=== PATIENT | male | born 1945 | race Caucasian/White ===

== ENCOUNTER 2019-06-30 10:37 | Outpatient (CLI) | payer MEDICARE, OTHER, SELFPAY ==
--- NOTE | 2019-06-30 10:44 | MR_ITS ---
WS: [id number] MRI HEAD WITH CONTRAST TECHNIQUE: Sagittal T1, T2 axial, T2 axial FLAIR, axial susceptibility weighted imaging, axial diffus ion weighted images, and coronal T2 images were obtained. Pre and post-T1 axial and post T1 coronal i mages. ADC and FSPGR images. CLINICAL INFORMATION: NEOPLASM OF UNCERTAIN BEHAVIOR CEREBRAL MENINGES COMPARISON: MRI 019 and FINDINGS: No evidence of restricted diffusion to suggest acute ischemia. Ventricular system and basal cisterns are patent. Moderate parenchymal volume loss. No suspicious intracranial signal abnormalities. Normal posterior fossa. Normal vascular flow voids skull base. No extra-axial fluid collections. Frontal pa renchymal volume loss. Mastoid air cells are well aerated. Paranasal sinuses are well aerated. No hem osiderin on susceptibly weighted images. 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 This daniel ures approximately 3 mm in maximum transverse dimension and is unchanged since the prior examinations . No underlying leptomeningeal enhancement or significant mass effect. No hydrocephalus. Visualized d ural venous sinuses appear patent. Normal optic chiasm and pituitary infundibulum. MR/MR head wo/w con [id number] IMPRESSION: 1. No evidence of restricted diffusion to suggest acute ischemia. 2. Stable pachymeningeal thickening and enhancement overlying the left cerebra l convexity unchanged since the prior examination. Differential considerations are broad and unchanged including lymphoma, metastatic disease, prior infectiou s or inflammatory etiologies, and neurosarcoid. No mass effect. 3. No suspicious intracranial signal abnormalities. 4. Moderate parenchymal volume loss more prominent in the frontal lobes. 5. No hydrocephalus.
== END 2019-06-30 10:38 | disposition home or self-care (01) ==
LOC: RADSHAW 10:42
PROVIDERS: Family Provider Physician Assistant Medical; Visit Provider Specialist
DX: D42.0 Neoplasm of uncertain behavior of cerebral meninges (principal)
CPT/HCPCS: 70553; A9579

== ENCOUNTER → 2021-08-09 09:23 | Outpatient (BNVA) | payer MEDICARE, OTHER, SELFPAY | PROVIDERS: Family Provider Physician Assistant Medical; PCP Physician Assistant Medical; Visit Provider Nurse Practitioner Family | DX: I10 Essential (primary) hypertension (principal); E78.5 Hyperlipidemia, unspecified; E11.9 Type 2 diabetes mellitus without complications; E78.49 Other hyperlipidemia; E03.9 Hypothyroidism, unspecified; D64.9 Anemia, unspecified | CPT/HCPCS: 80053; 80061; 83036; 84443; 85025 ==

== ENCOUNTER → 2021-09-08 11:06 | Outpatient (BNVA) | payer MEDICARE, OTHER, SELFPAY | PROVIDERS: Family Provider Physician Assistant Medical; PCP Physician Assistant Medical; Visit Provider Internal Medicine Cardiovascular Disease | DX: I10 Essential (primary) hypertension (principal); E03.9 Hypothyroidism, unspecified; E11.9 Type 2 diabetes mellitus without complications | CPT/HCPCS: 99214 ==

== ENCOUNTER → 2022-03-26 11:23 | Outpatient (BNVA) | payer MEDICARE, OTHER, SELFPAY | PROVIDERS: Family Provider Physician Assistant Medical; PCP Physician Assistant Medical; Visit Provider Nurse Practitioner Family | DX: E11.9 Type 2 diabetes mellitus without complications (principal); I10 Essential (primary) hypertension; R53.82 Chronic fatigue, unspecified; M25.569 Pain in unspecified knee; E03.9 Hypothyroidism, unspecified | CPT/HCPCS: 80053; 83036; 84443 ==

== ENCOUNTER 2022-03-31 13:28 | Outpatient (CLI) | payer MEDICARE, OTHER, SELFPAY ==
--- NOTE | 2022-03-31 13:43 | XRR_ITS ---
PROCEDURE INFORMATION: Exam: XR Left Knee Exam date and time: 03/31/2022 1:48 PM Age: 76 years old Clinical indication: Pain; Knee; Left; Additional info: M25.569 - pain in unspecified knee TECHNIQUE: Imaging protocol: Radiologic exam of the Left knee. Views: 3 views. COMPARISON: No relevant prior studies available. FINDINGS: Bones/joints: Tricompartmental primary osteoarthritic changes including joint space narrowing, subchondral cystic/sclerotic changes, and marginal osteophyte formations. Soft tissues: There are benign-appearing soft tissue calcifications. Vasculature: There are peripheral vascular calcifications. XR/XR knee LT 3V* [id number] IMPRESSION: There are tricompartmental primary osteoarthritic changes in the knee as described above.
--- NOTE | 2022-03-31 13:43 | XRR_ITS ---
PROCEDURE INFORMATION: Exam: XR Right Knee Exam date and time: 03/31/2022 1:45 PM Age: 76 years old Clinical indication: Pain; Knee; Right; Additional info: M25.569 - pain in unspecified knee TECHNIQUE: Imaging protocol: Radiologic exam of the Right knee. Views: 3 views. COMPARISON: No relevant prior studies available. FINDINGS: Bones/joints: There are meniscal calcifications. Portions of the meniscus can be visualized secondary to the calcifications and medial meniscus appears to be extruded mildly medially. Tricompartmental primary osteoarthritic changes including joint space narrowing, subchondral cystic/sclerotic changes, and marginal osteophyte formations. Soft tissues: Normal. Vasculature: There are peripheral vascular calcifications. XR/XR knee RT 3V* [id number] IMPRESSION: 1. Tricompartmental primary osteoarthritic changes are present as described above. 2. There are meniscal calcifications. Medial meniscus appears to be extruded mildly medially suspicious for meniscal tear. MRI of the right knee is recommended for further evaluation if clinically warranted.
== END 2022-03-31 13:29 | disposition home or self-care (01) ==
PROVIDERS: PCP Physician Assistant Medical; Visit Provider Nurse Practitioner Family
DX: M25.561 Pain in right knee (principal)
CPT/HCPCS: 73562

== ENCOUNTER 2022-04-25 15:41 | Outpatient (CLI) | payer MEDICARE, OTHER, SELFPAY ==
--- NOTE | 2022-04-25 16:00 | MR_ITS ---
WS: [id number] MRI RIGHT KNEE HISTORY: M25.561 - Pain in right knee, prior meniscus repair. COMPARISON: 03/31/2022 radiographs Anterior cruciate ligament: Mild intrasubstance degeneration. There is increased signal but no full-t hickness tear. Posterior cruciate ligament: Mild posterior buckling and increased signal but no tear. Medial collateral ligament: Small amount of fluid surrounding the MCL. There is fluid within the liga ment. No full-thickness tear. Posterior lateral corner structures: Intact. Medial menisci: Anterior horn is extruded from the joint space. Increased T2 signal throughout a larg e portion of the anterior horn extending to the superior and inferior articular surfaces. Increased s ignal throughout the posterior horn with blunting of the free edge. Intrasubstance degeneration and f raying along the surfaces. There is increased T2 signal extending to the inferior articular surface. Lateral meniscus: Intact. Normal signal, size and shape. Extensor mechanism: Distal quadriceps tendon and patellar tendons are intact. Fluid and soft tissue: Small suprapatellar joint effusion. Small Hernandez's cyst. Osseous and articular structures: Patellofemoral compartment: Moderate narrowing of the patellofemoral compartment. Complete loss of ca rtilage along the lateral patellar facet. Mild lateral subluxation of patella. Medial compartment: Moderate narrowing of the medial compartment with marginal osteophytes. Loss of c artilage along the joint surface. There is a very small amount of marrow edema in the anterior femur and tibia. Lateral compartment: Mild narrowing of the lateral compartment with small osteophytes. Mild chondroma lacia. MR/MR knee RT wo con* [id number] IMPRESSION: 1. Partially extruded anterior horn medial meniscus with complex tear. 2. Abnormal signal throughout the posterior horn medial meniscus with intrasub stance degeneration and horizontal tear extending to the free edge. 3. Small Hernandez's cyst. 4. Moderate chondromalacia lateral patellar facet and moderate patellofemoral arthritis. 5. Moderate narrowing medial compartment with complete loss of cartilage and a small amount of edema. 6. Mild focal chondromalacia lateral compartment. 7. Intrasubstance degeneration ACL and PCL. 8. Mild MCL sprain.
== END 2022-04-25 15:42 | disposition home or self-care (01) ==
LOC: RAD 15:42
PROVIDERS: PCP Nurse Practitioner Family; Visit Provider Nurse Practitioner Family
DX: M71.21 Synovial cyst of popliteal space [Baker], right knee (principal); S83.411A Sprain of medial collateral ligament of right knee, initial encounter; M22.41 Chondromalacia patellae, right knee
CPT/HCPCS: 73721

== ENCOUNTER → 2022-10-10 11:24 | Outpatient (BNVA) | payer MEDICARE, OTHER, SELFPAY | PROVIDERS: PCP Nurse Practitioner Family; Visit Provider Nurse Practitioner Family | DX: Z12.5 Encounter for screening for malignant neoplasm of prostate (principal); I10 Essential (primary) hypertension; E11.9 Type 2 diabetes mellitus without complications | CPT/HCPCS: 80053; 80061; 83036; G0103 ==

== ENCOUNTER → 2022-11-14 14:24 | Outpatient (BNVA) | payer MEDICARE, OTHER, SELFPAY | PROVIDERS: PCP Nurse Practitioner Family; Visit Provider Internal Medicine Cardiovascular Disease | DX: I10 Essential (primary) hypertension (principal) | CPT/HCPCS: 99214 ==

== ENCOUNTER → 2023-02-05 13:24 | Outpatient (BNVA) | payer MEDICARE, OTHER, SELFPAY | PROVIDERS: PCP Nurse Practitioner Family; Visit Provider Nurse Practitioner Family | DX: I10 Essential (primary) hypertension (principal); E55.9 Vitamin D deficiency, unspecified; E11.9 Type 2 diabetes mellitus without complications; E78.5 Hyperlipidemia, unspecified; E03.9 Hypothyroidism, unspecified; R53.83 Other fatigue | CPT/HCPCS: 80053; 80061; 82306; 83036; 83721; 84443; 85025 ==

== ENCOUNTER → 2023-02-12 15:36 | Outpatient (BNVA) | payer MEDICARE, OTHER, SELFPAY | PROVIDERS: PCP Nurse Practitioner Family; Visit Provider Nurse Practitioner Family | DX: D64.9 Anemia, unspecified (principal); M25.569 Pain in unspecified knee | CPT/HCPCS: 82607; 82728; 83550; 85025 ==

== ENCOUNTER → 2023-02-18 13:48 | Outpatient (BNVA) | payer MEDICARE, OTHER, SELFPAY | PROVIDERS: PCP Nurse Practitioner Family; Visit Provider Nurse Practitioner Family | DX: R53.83 Other fatigue (principal) | CPT/HCPCS: 82270 ==

== ENCOUNTER → 2023-03-14 14:46 | Outpatient (BNVA) | payer MEDICARE, OTHER, SELFPAY | PROVIDERS: PCP Nurse Practitioner Family; Referring Provider Nurse Practitioner Family; Visit Provider Surgery | DX: K58.9 Irritable bowel syndrome, unspecified (principal) | CPT/HCPCS: 99204 ==

== ENCOUNTER 2023-05-09 08:12 | Day surgery (SDC) | payer MEDICARE, OTHER, SELFPAY ==
--- NOTE | 2023-05-09 07:34 | W.PM.OPSFHP ---
Same Day Surgery H&P Indication for Procedure/HPI DATE OF PROCEDURE: May 09, 2023 CHIEF COMPLAINT/INDICATIONFOR SURGICAL PROCEDURE: positive FOBT PREOP DIAGNOSIS: Need for screening colonoscopy PLANNED PROCEDURE: Operation Date: 05/09/23 09:15 Proposed Procedures p Colonoscopy 76188,Z12.11(Not Applicable) - Remi Valderrama MD Medications/Allergies* Home Medications Medication Instructions Recorded Confirmed Type Al hyd-Mg tr-alg ac-sod bicarb 80 1 tab PO DAILY 09/02/19 05/07/23 History mg-14.2 mg chewable tablet (Gaviscon) acetaminophen 325 mg tablet 325 mg PO QID PRN Pain 09/02/19 05/07/23 History (Tylenol) potassium gluconate 600 mg (99 mg) 600 mg PO BID 09/09/20 05/07/23 History tablet chlorpheniramine maleate 4 mg 4 mg PO Q8H PRN Allergy Symptoms 11/14/22 05/07/23 History tablet loperamide 2 mg capsule (Imodium 2 mg PO QID PRN Diarrhea 11/14/22 05/07/23 History A-D) cholecalciferol (vitamin D3) 125 125 mcg PO DAILY 03/04/23 05/07/23 History mcg (5,000 unit) capsule folic acid 1 mg tablet 1 mg PO DAILY 03/04/23 05/07/23 History acetaminophen 650 mg 650 mg PO DAILY PRN Pain 05/07/23 05/07/23 History tablet,extended release amlodipine 10 mg tablet 10 mg PO DAILY 05/07/23 05/07/23 History carvedilol 25 mg tablet 25 mg PO BID 05/07/23 05/07/23 History glipizide 5 mg tablet 10 mg PO BID 05/07/23 05/07/23 History hydralazine 50 mg tablet 50 mg PO BID 05/07/23 05/07/23 History levothyroxine 25 mcg tablet 25 mcg PO DAILY 05/07/23 05/07/23 History lovastatin 10 mg tablet 10 mg PO DAILY 05/07/23 05/07/23 History metformin 500 mg tablet 1,000 mg PO BID 05/07/23 05/07/23 History metformin 500 mg tablet 500 mg PO .DAILY @NOON 05/07/23 05/07/23 History Allergies/Adverse Reactions Allergy/AdvReac Type Severity Reaction Status Date / Time hydrochlorothiazide Allergy Intermediate Dizziness Verified 05/07/23 13:15 lisinopril Allergy Unknown Verified 05/07/23 13:15 Pertinent History/Comorbid Conditions* Medical History (Updated 04/16/23 @ 08:33 by LUCIO Boss) Diabetes mellitus Fatigue GERD (gastroesophageal reflux disease) Hyperlipidemia Hypothyroidism NIKOLAI on CPAP Uncontrolled hypertension Surgical History (Updated 09/08/21 @ 15:38 by Roxy Schwartz MD) S/P knee surgery Right S/P tonsillectomy and adenoidectomy 1951 Family History (Updated 09/02/19 @ 10:42 by Tiara Chamberlain RN) Diabetes Grandmother Mother CAD (coronary artery disease) Grandmother Grandfather Father Myocardial infarction Grandmother Grandfather Father Cancer Sister Son Hypertension Social History Smoking and tobacco/nicotine status: never used tobacco/nicotine Pertinent Exam Findings alert, oriented x 3, clear to auscultation bilaterally and regular rate & rhythm Recommendations Surgery/Procedure today Coding Level of Care Code Acute Code for Chg Fwd Diagnoses
[2023-05-09 08:23] VITALS: BP 139/74; PULSE 74; RESP 16; TEMP 36.6; O2SAT 94
[2023-05-09 08:31] VITALS: BMI 25.8
--- NOTE | 2023-05-09 08:38 | P.ANESASSM_ITS ---
Pre-Anesthetic Assessment Height/Weight: Height 1.73 m Weight 77.111 kg Temp Pulse Resp BP Pulse Ox O2 Del Method 97.9 F 74 16 139/74 94 Room Air 05/09/23 08:23 05/09/23 08:23 05/09/23 08:23 05/09/23 08:23 05/09/23 08:23 05/09/23 08:23 Preop Diagnosis: Need for screening colonoscopy Operation Date: 05/09/23 09:15 Proposed Procedures p Colonoscopy 07489,Z12.11(Not Applicable) - Remi Valderrama MD Familial anesthetic complications: None Was Beta Anastacio taken within 24 hours: Yes Was Clonidine taken within 24 hours: N/A Last intake: Intake Last Liquid Date 05/08/23 Last Liquid Time 22:00 Last Solid Date 05/07/23 Last Solid Time 18:30 Social No alcohol and No tobacco Exam alert, oriented x 3, clear to auscultation bilaterally and regular rate & rhythm Airway Mallampati: Class II Dentition: other (missing teeth) Pulmonary Sleep Apnea CV/HEM Hypertension Metabolic Diabetes Mellitus, Hyperlipidemia and Thyroid Disease Anesthetic Plan ASA status: 3 Anesthesia: MAC Risk of > 500 ml blood loss (7ml/kg in children): No Medications/Allergies Home Medications Medication Instructions Recorded Confirmed Last Taken Type Al hyd-Mg tr-alg ac-sod bicarb 80 1 tab PO DAILY 09/02/19 05/07/23 05/06/23 History mg-14.2 mg chewable tablet (Gaviscon) acetaminophen 325 mg tablet 325 mg PO QID PRN Pain 09/02/19 05/07/23 05/06/23 History (Tylenol) potassium gluconate 600 mg (99 mg) 600 mg PO BID 09/09/20 05/07/23 05/07/23 History tablet glucose test strips delica mini See Rx Instructions .Route 04/30/22 05/07/23 05/07/23 Rx .COMPLEX #100 strips chlorpheniramine maleate 4 mg 4 mg PO Q8H PRN Allergy Symptoms 11/14/22 05/07/23 05/06/23 History tablet loperamide 2 mg capsule (Imodium 2 mg PO QID PRN Diarrhea 11/14/22 05/07/23 Unknown History A-D) lancets 33 gauge (OneTouch Delica #100 ea 12/28/22 04/24/23 Unknown Rx Lancets) blood-glucose meter (Blood Glucose #1 ea 02/04/23 04/24/23 Unknown Rx Monitoring kit) blood-glucose meter (OneTouch #1 ea 02/26/23 04/24/23 Unknown Rx Ultra2 Meter) cholecalciferol (vitamin D3) 125 125 mcg PO DAILY 03/04/23 05/09/23 05/08/23 History mcg (5,000 unit) capsule folic acid 1 mg tablet 1 mg PO DAILY 03/04/23 05/09/23 05/08/23 History blood sugar diagnostic (OneTouch #100 ea 04/01/23 04/24/23 Unknown Rx Ultra Test strips) honey 100 % topical paste 1 applic topical BID #103 mL 04/15/23 05/07/23 05/07/23 Rx (MediHoney (honey)) acetaminophen 650 mg 650 mg PO DAILY PRN Pain 05/07/23 05/07/23 05/03/23 History tablet,extended release amlodipine 10 mg tablet 10 mg PO DAILY 05/07/23 05/07/23 05/09/23 History carvedilol 25 mg tablet 25 mg PO BID 05/07/23 05/09/23 05/09/23 History glipizide 5 mg tablet 10 mg PO BID 05/07/23 05/07/23 05/07/23 History hydralazine 50 mg tablet 50 mg PO BID 05/07/23 05/09/23 05/09/23 History levothyroxine 25 mcg tablet 25 mcg PO DAILY 05/07/23 05/07/23 05/09/23 History lovastatin 10 mg tablet 10 mg PO DAILY 05/07/23 05/09/23 05/08/23 History metformin 500 mg tablet 1,000 mg PO BID 05/07/23 05/07/23 05/07/23 History metformin 500 mg tablet 500 mg PO .DAILY @NOON 05/07/23 05/07/23 05/07/23 History Allergies Allergy/AdvReac Type Severity Reaction Status Date / Time hydrochlorothiazide Allergy Intermediate Dizziness Verified 05/07/23 13:15 lisinopril Allergy Unknown Verified 05/07/23 13:15 [facility] Anesthesia Medical History Diabetes mellitus Fatigue GERD (gastroesophageal reflux disease) Hyperlipidemia Hypothyroidism NIKOLAI on CPAP Uncontrolled hypertension Surgical History S/P knee surgery Right S/P tonsillectomy and adenoidectomy 1951 Family History Sister Cancer Son Cancer Grandmother Myocardial infarction CAD (coronary artery disease) Diabetes Grandfather Myocardial infarction CAD (coronary artery disease) Father Myocardial infarction CAD (coronary artery disease) Mother Diabetes Other Hypertension Social History Smoking and tobacco/nicotine status: never used tobacco/nicotine Data Anesthesia Cardiac Studies: No Data to Display
[2023-05-09] MEDS: sodium chloride 0.9% 1,000 ML 30 ML IV (08:45)
[2023-05-09 08:59] LABS: Glucose Point of Care 204 mg/dL (70-110)
[2023-05-09 10:24] VITALS: BP 94/55; PULSE 62; RESP 18; TEMP 36.1; O2SAT 96
[2023-05-09 10:35] VITALS: BP 93/55; PULSE 56; RESP 18; O2SAT 96
[2023-05-09 10:40] VITALS: BP 103/68; PULSE 61; RESP 18; O2SAT 98
[2023-05-09 11:00] VITALS: BP 129/68; PULSE 60; RESP 18; O2SAT 97
--- NOTE | 2023-05-09 11:15 | ANE.PACU2 ---
Inpatient post-anesthesia follow up: Airway intact: Yes Vital signs: Temperature 97.0 F Pulse Rate 60 Respiratory Rate 18 Blood Pressure 129/68 Pulse Oximetry 97 Oxygen Delivery Me thod Room Air Oxygen Flow Rate 4 Fraction of Inspir ed Oxygen Hydration adequate: Yes Nausea and vomiting: No Pain level: 1 Mental status: Baseline
== END 2023-05-09 11:21 | disposition home or self-care (01) ==
PROVIDERS: PCP Nurse Practitioner Family; Visit Provider Surgery
PROC: 0DJD8ZZ Inspection of Lower Intestinal Tract, Via Natural or Artificial Opening Endoscopic (ICD-10-PCS; CPT 45378; principal; 2023-05-09 09:15)
DX: Z12.11 Encounter for screening for malignant neoplasm of colon (principal); D12.3 Benign neoplasm of transverse colon; D12.8 Benign neoplasm of rectum; E11.9 Type 2 diabetes mellitus without complications; K21.9 Gastro-esophageal reflux disease without esophagitis; E03.9 Hypothyroidism, unspecified; G47.33 Obstructive sleep apnea (adult) (pediatric); I10 Essential (primary) hypertension; G47.30 Sleep apnea, unspecified; E78.5 Hyperlipidemia, unspecified; Z79.84 Long term (current) use of oral hypoglycemic drugs
CPT/HCPCS: 36416; 45380; 82962; 88305; J2704; J7030

== ENCOUNTER → 2023-05-28 11:14 | Outpatient (BNVA) | payer MEDICARE, OTHER, SELFPAY | PROVIDERS: PCP Nurse Practitioner Family; Visit Provider Surgery | DX: Z09 Encounter for follow-up examination after completed treatment for conditions other than malignant neoplasm (principal) | CPT/HCPCS: 99213 ==

== ENCOUNTER → 2023-05-29 09:56 | Outpatient (BNVA) | payer MEDICARE, OTHER, SELFPAY | PROVIDERS: PCP Nurse Practitioner Family; Visit Provider Internal Medicine Cardiovascular Disease | DX: I10 Essential (primary) hypertension (principal) | CPT/HCPCS: 99214 ==

== ENCOUNTER 2023-06-27 04:54 | Emergency (ER) | payer MEDICARE, OTHER, SELFPAY ==
[2023-06-27] VITALS (9 sets, daily range): BP systolic 158–218; BP diastolic 93–114; PULSE 75–90; RESP 18; TEMP 36.6; O2SAT 93–94; BMI 25.9
--- NOTE | 2023-06-27 05:06 | W.ED.GENADLT ---
Documented by User: Stephan Hodgson DO 06/27/23 05:24 HPI - General Adult General: Chief complaint: General Medical Stated complaint: hypertension Time Seen by Provider: 06/27/23 04:55 History of Present Illness: Presents to the ER with complaints of high blood pressure. Patient was seen 2 nights ago at [facility] for high blood pressure. Patient was seen yesterday at his PCPs office where they increased his carvedilol. Patient is now taking 20 5 in the morning 12 point 5 in the afternoon. Patient is also taking hydralazine 20 5 in the morning 25 at noon and 50 in the afternoon and 75 at bedtime. Patient has appointment to see nurse practitioner Tamiko De Paz cardiology on July 04 and like to see if we get that moved up. Patient denies any chest pain, nausea, vomiting, shortness of breath. Patient is in no acute distress and nontoxic at this moment. Review of Systems General: Reports: 10 or more systems reviewed and unremarkable except in HPI and below PFSH ED PFSH: Medical History NIKOLAI on CPAP Hypothyroidism Uncontrolled hypertension Diabetes mellitus GERD (gastroesophageal reflux disease) Hyperlipidemia Fatigue Surgical History S/P knee surgery Right S/P tonsillectomy and adenoidectomy 1951 Family History Sister Cancer Son Cancer Grandmother Myocardial infarction CAD (coronary artery disease) Diabetes Grandfather Myocardial infarction CAD (coronary artery disease) Father Myocardial infarction CAD (coronary artery disease) Mother Diabetes Other Hypertension Social History Smoking and tobacco/nicotine status: never used tobacco/nicotine Physical Exam Const: COMMON NORMALS: no acute distress, average body habitus, patient oriented x3, no limitations, healthy appearing, alert and well nourished HENMT: COMMON NORMALS: normocephalic, atraumatic, hearing grossly normal bilaterally, external ears normal, Normal external nose present, moist oral mucous membranes and oropharynx normal HEAD & SCALP: normocephalic and atraumatic NOSE: Normal external nose present EXTERNAL EAR: Yes external ears normal Neck/C-Spine: COMMON NORMALS: full ROM, no lymphadenopathy, supple, no meningeal signs, no JVD and Thyroid normal THYROID: Thyroid normal Chest: COMMONS NORMALS: normal inspection of the chest and normal palpation of entire chest wall Resp: COMMON NORMALS: normal respiratory effort, No retractions, No use of accessory muscles and clear to auscultation bilaterally AUSCULTATION: clear to auscultation bilaterally Cardio: COMMON NORMALS: no JVD, regular rate, regular rhythm, S1 normal heart sound present, S2 normal heart sound present, No gallops present (Cardio), No clicks present (Cardio), No murmurs present (Cardio) and No rub (Cardio) RATE: regular rate RHYTHM: regular rhythm HEART SOUNDS: S1 normal heart sound present and S2 normal heart sound present GI: COMMON NORMALS: Normal to inspection, nondistended, normoactive bowel sounds present, Soft to palpation, non-tender, No hepatosplenomegaly present and no masses PALPATION: Yes Soft to palpation and Yes No hepatosplenomegaly present Neuro: COMMON NORMALS: patient oriented x3 SENSORIUM/ORIENTATION: Yes alert MENINGEAL SIGNS: Yes no meningeal signs Course Vital Signs: Vital signs: Vital Signs Temperature 97.9 F 06/27/23 05:00 Pulse Rate 89 06/27/23 09:37 Respiratory Rate 18 06/27/23 09:37 Blood Pressure 160/100 06/27/23 09:37 Pulse Oximetry 93 06/27/23 09:37 Oxygen Delivery Me thod Room Air 06/27/23 08:38 MDM - General Adult Differential Diagnosis Hypertension Medical Records I reviewed the patient's medical records. Lab Data I reviewed the patient's lab results. 06/27/23 05:11 06/27/23 05:11 Laboratory Results WBC 4.35 10^3/uL (3.29-11.43) 06/27/23 05:11 RBC 5.21 10^6/uL (3.85-5.65) 06/27/23 05:11 Hgb 14.70 g/dL (11.27-16.99) 06/27/23 05:11 Hct 43.2 % (37-53) 06/27/23 05:11 MCV 82.9 fl (82-101) 06/27/23 05:11 MCH 28.2 pg (27-33) 06/27/23 05:11 MCHC 34.0 g/dL (30-55) 06/27/23 05:11 RDW 15.6 % (12.1-15.1) H 06/27/23 05:11 Plt Count 164 10^3/cmm (157-399) 06/27/23 05:11 MPV 9.5 fL (7.4-10.4) 06/27/23 05:11 Neut % (Auto) 72.3 % 06/27/23 05:11 Lymph % (Auto) 19.5 % 06/27/23 05:11 [place] % (Auto) 5.5 % 06/27/23 05:11 Eos % (Auto) 1.1 % 06/27/23 05:11 Baso % (Auto) 0.7 % 06/27/23 05:11 Neut # (Auto) 3.14 10^3/uL (1.8-7.7) 06/27/23 05:11 Lymph # (Auto) 0.9 10^3/uL (0.8-4.8) 06/27/23 05:11 [place] # (Auto) 0.2 10^3/uL (0.2-0.9) 06/27/23 05:11 Eos # (Auto) 0.1 10^3/uL (0.0-0.8) 06/27/23 05:11 Baso # (Auto) 0.0 10^3/uL (0.0-0.1) 06/27/23 05:11 Nucleated RBC % (auto) 0 % 06/27/23 05:11 Nucleated RBCs # 0.0 /100WBC 06/27/23 05:11 Sodium 136 mmol/L (136-145) 06/27/23 05:11 Potassium 3.7 mmol/L (3.5-5.1) 06/27/23 05:11 Chloride 100 mmol/L (98-107) 06/27/23 05:11 Carbon Dioxide 23 mmol/L (22-29) 06/27/23 05:11 Anion Gap 16.7 (5-19) 06/27/23 05:11 BUN 17 mg/dL (8-23) 06/27/23 05:11 Creatinine 0.7 mg/dL (0.7-1.2) 06/27/23 05:11 GFR Calculation Not Reportable 06/27/23 05:11 Glucose 159 mg/dL (65-115) H 06/27/23 05:11 Calculated Osmolality 287 mOsm/kg (285-295) 06/27/23 05:11 Calcium 9.2 mg/dL (8.5-10.5) 06/27/23 05:11 Total Bilirubin 0.5 mg/dL (0.15-1.2) 06/27/23 05:11 AST 20 U/L (0-40) 06/27/23 05:11 ALT 10 U/L (0-41) 06/27/23 05:11 Alkaline Phosphatase 111 U/L (40-130) 06/27/23 05:11 Total Protein 7.7 g/dL (6.6-8.7) 06/27/23 05:11 Albumin 4.1 g/dL (3.5-5.2) 06/27/23 05:11 Globulin 3.6 g/dL (1.3-4.6) 06/27/23 05:11 TSH 3.46 uIU/mL (0.27-4.20) 06/27/23 05:11 No radiology studies performed this visit EKG Data EKG 1: I personally reviewed and interpreted this EKG as follows: EKG interpretation date: 06/27/23 EKG interpretation time: 05:07 Prior EKG tracings: not available for review Interpretation: EKG showed ventricular rate 71 bpm, LA interval 156, QRS duration 82, QTc of 462, sinus rhythm, borderline left axis deviation, prolonged QT interval Discharge Plan Discharge Patient Disposition: Home Clinical Impression: Hypertension, uncontrolled Condition: Stable Prescriptions: New clonidine HCl 0.1 mg tablet 0.1 mg PO BID Qty: 20 0RF No Action Gaviscon 80-14.2 mg tablet,chewable 1 tab PO DAILY potassium gluconate 600 mg (99 mg) tablet 600 mg PO BID chlorpheniramine maleate 4 mg tablet 4 mg PO Q8H PRN (Reason: Allergy Symptoms) Rx Instructions: do not exceed 2 doses per 24 hrs loperamide [Imodium A-D] 2 mg capsule 2 mg PO QID PRN (Reason: Diarrhea) folic acid 1 mg tablet 1 mg PO DAILY cholecalciferol (vitamin D3) 125 mcg (5,000 unit) capsule See Rx Instructions .ROUTE .COMPLEX Rx Instructions: 125 mcg orally 3 times per week MediHoney (honey) 100 % paste 1 applic topical BID Qty: 103 0RF hydralazine 50 mg tablet See Rx Instructions PO .COMPLEX Rx Instructions: 1/2 tab in am and at noon and then one tablet at super and then one and half at bedtime orally; epinephrine [EpiPen 2-Troy] 0.3 mg/0.3 mL auto-injector 0.3 mg IM Q4H PRN (Reason: anaphylaxis) Qty: 2 0RF (DME) blood-glucose meter [Blood Glucose Monitoring] Kit See Rx Instructions .ROUTE .MEDSUPPLY Qty: 1 0RF Rx Instructions: As directed (DME) blood-glucose meter [OneTouch Ultra2 Meter] [facility] [place] See Rx Instructions .Route Qty: 1 0RF Rx Instructions: TEST DAILY (DME) OneTouch Ultra Test Strip See Rx Instructions .ROUTE .COMPLEX Qty: 100 1RF Dose Instruction: USE 1 STRIP TO CHECK GLUCOSE ONCE DAILY FOR DIABETES Rx Instructions: USE 1 STRIP TO CHECK GLUCOSE ONCE DAILY FOR DIABETES (DME) lancets [OneTouch Delica Plus Lancet] 33 [place] [facility] [place] See Rx Instructions .ROUTE .COMPLEX Qty: 100 0RF Dose Instruction: USE 1 TO CHECK GLUCOSE ONCE DAILY FOR DIABETES Rx Instructions: USE 1 TO CHECK GLUCOSE ONCE DAILY FOR DIABETES e11.9 acetaminophen 650 mg Tablet Extended Release 650 mg PO DAILY PRN (Reason: Pain) levothyroxine 25 mcg tablet 25 mcg PO DAILY metformin 500 mg tablet See Rx Instructions .ROUTE .COMPLEX Rx Instructions: 2 tab in AM, 1 tab at noon, 2 tabs at supper carvedilol 25 mg tablet 25 mg PO QAM carvedilol 12.5 mg tablet 12.5 mg PO QPM lovastatin 10 mg tablet 10 mg PO DAILY glipizide 5 mg tablet 10 mg PO BID Humalog KwikPen Insulin 100 unit/mL insulin pen See Rx Instructions .ROUTE .COMPLEX Rx Instructions: Use as directed Humulin 70/30 U-100 KwikPen 100 unit/mL (70-30) insulin pen See Rx Instructions .ROUTE .COMPLEX Rx Instructions: Use as directed Discharge Orders: Discharge ED (Routine); Ordered 06/27/23 Ordered By: Antione Mcneal Referrals: Areli Pruett FNP [Primary Care Provider] - Discharge Diet: Advance as tolerated Discharge Activity: Resume usual activity Patient Instructions: Opioid Safety, Pain Management Activity Restrictions/Additional Instructions: Activity Restrictions/Additional Instructions: Thank you for choosing [facility] for your healthcare needs today. Please realize that you were seen in the Emergency Department and that we are providing you with an emergency medical screening exam and this may not be a complete and all inclusive of all the testing and or medical work-up that you may need to determine your ailment or severity of your illness. It is very important that you follow-up as instructed with your Primary care provider or Specialist for additional evaluation and to discuss your medical treatment plan. You may return to the Emergency Department should you have concerns or if your condition changes or worsens in any way. I have prescribed you clonidine to be taken if your systolic blood pressure (the top number on your blood pressure monitor) is elevated above 180 on 2 consecutive measurements 1 hour apart. If your systolic blood pressure is elevated above 180 on 2 separate occasions 1 hour apart then take a clonidine 0.1 mg then wait 2 hours and recheck your blood pressure if your systolic blood pressure on the recheck is above 170, then take another clonidine 0.1 mg, then wait 2 hours and recheck your blood pressure. If your systolic blood pressure on the second recheck remains above 170 then you may call your primary care doctor or return to the emergency department for additional evaluation and possible treatment. It is extremely important to continue to take all of your antihypertensive medications as advised by your primary care physician or medical provider. Coding Level of Care Code ED Burglar Alarm Installer for Chg Fwd Documented by User: Antione Mcneal MD 07/03/23 07:52 HPI - General Adult General: Chief complaint: General Medical Stated complaint: hypertension Time Seen by Provider: 06/27/23 04:55 History of Present Illness: Associated symptoms: Reports headache(s) Review of Systems Neuro: Reports: headache(s) PFS ED PFSH: Medical History NIKOLAI on CPAP Hypothyroidism Uncontrolled hypertension Diabetes mellitus GERD (gastroesophageal reflux disease) Hyperlipidemia Fatigue Surgical History S/P knee surgery Right S/P tonsillectomy and adenoidectomy 1951 Family History Sister Cancer Son Cancer Grandmother Myocardial infarction CAD (coronary artery disease) Diabetes Grandfather Myocardial infarction CAD (coronary artery disease) Father Myocardial infarction CAD (coronary artery disease) Mother Diabetes Other Hypertension Social History Smoking and tobacco/nicotine status: never used tobacco/nicotine Course Vital Signs: Vital signs: Vital Signs Temperature 97.9 F 06/27/23 05:00 Pulse Rate 89 06/27/23 09:37 Respiratory Rate 18 06/27/23 09:37 Blood Pressure 160/100 06/27/23 09:37 Pulse Oximetry 93 06/27/23 09:37 Oxygen Delivery Me thod Room Air 06/27/23 08:38 MDM - General Adult Medical Decision Making Report received from outgoing ER physician Dr. Hodgson, patient was seen and evaluated initially by Dr. Hodgson I did reevaluate the patient upon receiving report and the patient's blood pressure is much improved I did have a brief discussion with the patient regarding his planned cardiology follow-up and recommended that he continue with his cardiology follow-up and we will prescribe him clonidine as needed for elevated systolic blood pressure above 170. Lab Data 06/27/23 05:11 06/27/23 05:11 Laboratory Results WBC 4.35 10^3/uL (3.29-11.43) 06/27/23 05:11 RBC 5.21 10^6/uL (3.85-5.65) 06/27/23 05:11 Hgb 14.70 g/dL (11.27-16.99) 06/27/23 05:11 Hct 43.2 % (37-53) 06/27/23 05:11 MCV 82.9 fl (82-101) 06/27/23 05:11 MCH 28.2 pg (27-33) 06/27/23 05:11 MCHC 34.0 g/dL (30-55) 06/27/23 05:11 RDW 15.6 % (12.1-15.1) H 06/27/23 05:11 Plt Count 164 10^3/cmm (157-399) 06/27/23 05:11 MPV 9.5 fL (7.4-10.4) 06/27/23 05:11 Neut % (Auto) 72.3 % 06/27/23 05:11 Lymph % (Auto) 19.5 % 06/27/23 05:11 [place] % (Auto) 5.5 % 06/27/23 05:11 Eos % (Auto) 1.1 % 06/27/23 05:11 Baso % (Auto) 0.7 % 06/27/23 05:11 Neut # (Auto) 3.14 10^3/uL (1.8-7.7) 06/27/23 05:11 Lymph # (Auto) 0.9 10^3/uL (0.8-4.8) 06/27/23 05:11 [place] # (Auto) 0.2 10^3/uL (0.2-0.9) 06/27/23 05:11 Eos # (Auto) 0.1 10^3/uL (0.0-0.8) 06/27/23 05:11 Baso # (Auto) 0.0 10^3/uL (0.0-0.1) 06/27/23 05:11 Nucleated RBC % (auto) 0 % 06/27/23 05:11 Nucleated RBCs # 0.0 /100WBC 06/27/23 05:11 Sodium 136 mmol/L (136-145) 06/27/23 05:11 Potassium 3.7 mmol/L (3.5-5.1) 06/27/23 05:11 Chloride 100 mmol/L (98-107) 06/27/23 05:11 Carbon Dioxide 23 mmol/L (22-29) 06/27/23 05:11 Anion Gap 16.7 (5-19) 06/27/23 05:11 BUN 17 mg/dL (8-23) 06/27/23 05:11 Creatinine 0.7 mg/dL (0.7-1.2) 06/27/23 05:11 GFR Calculation Not Reportable 06/27/23 05:11 Glucose 159 mg/dL (65-115) H 06/27/23 05:11 Calculated Osmolality 287 mOsm/kg (285-295) 06/27/23 05:11 Calcium 9.2 mg/dL (8.5-10.5) 06/27/23 05:11 Total Bilirubin 0.5 mg/dL (0.15-1.2) 06/27/23 05:11 AST 20 U/L (0-40) 06/27/23 05:11 ALT 10 U/L (0-41) 06/27/23 05:11 Alkaline Phosphatase 111 U/L (40-130) 06/27/23 05:11 Total Protein 7.7 g/dL (6.6-8.7) 06/27/23 05:11 Albumin 4.1 g/dL (3.5-5.2) 06/27/23 05:11 Globulin 3.6 g/dL (1.3-4.6) 06/27/23 05:11 TSH 3.46 uIU/mL (0.27-4.20) 06/27/23 05:11 Discharge Plan Discharge Patient Disposition: Home Clinical Impression: Hypertension, uncontrolled Condition: Stable Prescriptions: New clonidine HCl 0.1 mg tablet 0.1 mg PO BID Qty: 20 0RF No Action Gaviscon 80-14.2 mg tablet,chewable 1 tab PO DAILY potassium gluconate 600 mg (99 mg) tablet 600 mg PO BID chlorpheniramine maleate 4 mg tablet 4 mg PO Q8H PRN (Reason: Allergy Symptoms) Rx Instructions: do not exceed 2 doses per 24 hrs loperamide [Imodium A-D] 2 mg capsule 2 mg PO QID PRN (Reason: Diarrhea) folic acid 1 mg tablet 1 mg PO DAILY cholecalciferol (vitamin D3) 125 mcg (5,000 unit) capsule See Rx Instructions .ROUTE .COMPLEX Rx Instructions: 125 mcg orally 3 times per week MediHoney (honey) 100 % paste 1 applic topical BID Qty: 103 0RF hydralazine 50 mg tablet See Rx Instructions PO .COMPLEX Rx Instructions: 1/2 tab in am and at noon and then one tablet at super and then one and half at bedtime orally; epinephrine [EpiPen 2-Troy] 0.3 mg/0.3 mL auto-injector 0.3 mg IM Q4H PRN (Reason: anaphylaxis) Qty: 2 0RF (DME) blood-glucose meter [Blood Glucose Monitoring] Kit See Rx Instructions .ROUTE .MEDSUPPLY Qty: 1 0RF Rx Instructions: As directed (DME) blood-glucose meter [OneTouch Ultra2 Meter] [facility] [place] See Rx Instructions .Route Qty: 1 0RF Rx Instructions: TEST DAILY (DME) OneTouch Ultra Test Strip See Rx Instructions .ROUTE .COMPLEX Qty: 100 1RF Dose Instruction: USE 1 STRIP TO CHECK GLUCOSE ONCE DAILY FOR DIABETES Rx Instructions: USE 1 STRIP TO CHECK GLUCOSE ONCE DAILY FOR DIABETES (DME) lancets [OneTouch Delica Plus Lancet] 33 gauge [facility] [place] See Rx Instructions .ROUTE .COMPLEX Qty: 100 0RF Dose Instruction: USE 1 TO CHECK GLUCOSE ONCE DAILY FOR DIABETES Rx Instructions: USE 1 TO CHECK GLUCOSE ONCE DAILY FOR DIABETES e11.9 acetaminophen 650 mg Tablet Extended Release 650 mg PO DAILY PRN (Reason: Pain) levothyroxine 25 mcg tablet 25 mcg PO DAILY metformin 500 mg tablet See Rx Instructions .ROUTE .COMPLEX Rx Instructions: 2 tab in AM, 1 tab at noon, 2 tabs at supper carvedilol 25 mg tablet 25 mg PO QAM carvedilol 12.5 mg tablet 12.5 mg PO QPM lovastatin 10 mg tablet 10 mg PO DAILY glipizide 5 mg tablet 10 mg PO BID Humalog KwikPen Insulin 100 unit/mL insulin pen See Rx Instructions .ROUTE .COMPLEX Rx Instructions: Use as directed Humulin 70/30 U-100 KwikPen 100 unit/mL (70-30) insulin pen See Rx Instructions .ROUTE .COMPLEX Rx Instructions: Use as directed Discharge Orders: Discharge ED (Routine); Ordered 06/27/23 Ordered By: Antione Mcneal Referrals: Areli Pruett FNP [Primary Care Provider] - Discharge Diet: Advance as tolerated Discharge Activity: Resume usual activity Patient Instructions: Opioid Safety, Pain Management Activity Restrictions/Additional Instructions: Activity Restrictions/Additional Instructions: Thank you for choosing [facility] for your healthcare needs today. Please realize that you were seen in the Emergency Department and that we are providing you with an emergency medical screening exam and this may not be a complete and all inclusive of all the testing and or medical work-up that you may need to determine your ailment or severity of your illness. It is very important that you follow-up as instructed with your Primary care provider or Specialist for additional evaluation and to discuss your medical treatment plan. You may return to the Emergency Department should you have concerns or if your condition changes or worsens in any way. I have prescribed you clonidine to be taken if your systolic blood pressure (the top number on your blood pressure monitor) is elevated above 180 on 2 consecutive measurements 1 hour apart. If your systolic blood pressure is elevated above 180 on 2 separate occasions 1 hour apart then take a clonidine 0.1 mg then wait 2 hours and recheck your blood pressure if your systolic blood pressure on the recheck is above 170, then take another clonidine 0.1 mg, then wait 2 hours and recheck your blood pressure. If your systolic blood pressure on the second recheck remains above 170 then you may call your primary care doctor or return to the emergency department for additional evaluation and possible treatment. It is extremely important to continue to take all of your antihypertensive medications as advised by your primary care physician or medical provider. Coding Level of Care Code ED Burglar Alarm Installer for Cristian Spears
--- NOTE | 2023-06-27 05:07 | ECG_ITS ---
[facility] Test Date: 2023-06-27 Pat Name: Rajeev Jeffers Department: Room: Gender: Male Nick Setter: : 1945 Requested By: Stephan Hodgson Order Number: [id number] Yolanda MD: Андрей Bonilla M.D. Measurements Intervals [place] Rate: 71 P: 36 NJ: 156 QRS: -26 QRSD: 82 T: 24 QT: 439 QTc: 480 Interpretive Statements SINUS RHYTHM BORDERLINE LEFT AXIS DEVIATION [QRS AXIS < -20] PROLONGED QT INTERVAL No previous ECG available for comparison Electronically Signed On 06-27-2023 13:03:16 PATCH SANDER by Андрей Bonilla M.D. [email or web address]
[2023-06-27] MEDS: hyDRALAzine 20 mg/mL INJ 1 mL IVP ×2 (05:38→09:23)
[2023-06-27 05:50] LABS: Basophils % 0.7 %; Eosinophils # 0.1 10^3/uL (0.0-0.8); Eosinophils % 1.1 %; Hematocrit 43.2 % (37-53); Lymphocytes # 0.9 10^3/uL (0.8-4.8); Lymphocytes % 19.5 %; Mean Corpuscular Hemoglobin 28.2 pg (27-33); Mean Corpuscular Volume 82.9 fl (82-101); Mean Platelet Volume 9.5 fL (7.4-10.4); Monocytes # 0.2 10^3/uL (0.2-0.9); Monocytes % 5.5 %; Neutrophils # 3.14 10^3/uL (1.8-7.7); Neutrophils % 72.3 %; Nucleated Red Blood Cells % 0 %; Platelet Count 164 10^3/cmm (157-399); Red Blood Count 5.21 10^6/uL (3.85-5.65); Red Cell Distribution Width 15.6 % (12.1-15.1); White Blood Count 4.35 10^3/uL (3.29-11.43)
[2023-06-27 06:18] LABS: Alanine Aminotransferase 10 U/L (0-41); Albumin Level 4.1 g/dL (3.5-5.2); Alkaline Phosphatase 111 U/L (40-130); Aspartate Amino Transferase 20 U/L (0-40); Blood Urea Nitrogen 17 mg/dL (8-23); Calcium 9.2 mg/dL (8.5-10.5); Carbon Dioxide 23 mmol/L (22-29); Chloride 100 mmol/L (98-107); Globulin 3.6 g/dL (1.3-4.6); Glucose 159 mg/dL (65-115); Osmolality Calculated 287 mOsm/kg (285-295); Sodium 136 mmol/L (136-145); Thyroid Stimulating Hormone 3.46 uIU/mL (0.27-4.20); Total Bilirubin 0.5 mg/dL (0.15-1.2); Total Protein 7.7 g/dL (6.6-8.7)
[2023-06-27 06:20] LABS: Anion Gap 16.7 (5-19); Potassium 3.7 mmol/L (3.5-5.1)
--- NOTE | 2023-06-27 08:05 | PC.NURSE ---
THIS NURSE ASSUMED CARE AT 0745.
== END 2023-06-27 09:52 | disposition home or self-care (01) ==
PROVIDERS: Emergency Medicine; Emergency Provider Internal Medicine; PCP Nurse Practitioner Family
DX: I10 Essential (primary) hypertension (principal); Z79.84 Long term (current) use of oral hypoglycemic drugs; Z79.4 Long term (current) use of insulin; E11.9 Type 2 diabetes mellitus without complications; E78.5 Hyperlipidemia, unspecified
CPT/HCPCS: 80053; 84443; 85025; 93005; 96374; 96376; 99284; J0360

== ENCOUNTER → 2023-07-05 09:54 | Outpatient (BNVA) | payer MEDICARE, OTHER, SELFPAY | PROVIDERS: PCP Nurse Practitioner Family; Visit Provider Nurse Practitioner Family | DX: I10 Essential (primary) hypertension (principal) | CPT/HCPCS: 99213 ==

== ENCOUNTER → 2023-09-17 11:24 | Outpatient (BNVA) | payer MEDICARE, OTHER, SELFPAY | PROVIDERS: PCP Nurse Practitioner Family; Visit Provider Nurse Practitioner Family | DX: E11.9 Type 2 diabetes mellitus without complications (principal) | CPT/HCPCS: 83036 ==

== ENCOUNTER → 2023-09-30 09:55 | Outpatient (BNVA) | payer MEDICARE, OTHER, SELFPAY | PROVIDERS: PCP Nurse Practitioner Family; Visit Provider Nurse Practitioner Family | DX: R53.83 Other fatigue (principal); M25.50 Pain in unspecified joint; I10 Essential (primary) hypertension | CPT/HCPCS: 80053; 84550; 85025; 86038; 86140; 86431 ==

== ENCOUNTER → 2023-11-27 11:34 | Outpatient (BNVA) | payer MEDICARE, OTHER, SELFPAY | PROVIDERS: PCP Nurse Practitioner Family; Visit Provider Internal Medicine Cardiovascular Disease | DX: I10 Essential (primary) hypertension (principal); E78.49 Other hyperlipidemia; E11.9 Type 2 diabetes mellitus without complications; E03.9 Hypothyroidism, unspecified; Z79.4 Long term (current) use of insulin; Z79.84 Long term (current) use of oral hypoglycemic drugs | CPT/HCPCS: 99214 ==

== ENCOUNTER → 2024-01-30 11:07 | Outpatient (BNVA) | payer MEDICARE, OTHER, SELFPAY | PROVIDERS: PCP Nurse Practitioner Family; Visit Provider Nurse Practitioner Family | DX: E11.9 Type 2 diabetes mellitus without complications (principal) | CPT/HCPCS: 80053; 80061; 83036; 85025 ==

== ENCOUNTER → 2024-05-04 09:04 | Outpatient (BNVA) | payer MEDICARE, OTHER, SELFPAY | PROVIDERS: PCP Nurse Practitioner Family; Visit Provider Nurse Practitioner Family | DX: E11.9 Type 2 diabetes mellitus without complications (principal) | CPT/HCPCS: 82043; 83036 ==

== ENCOUNTER 2024-06-20 02:17 | Emergency (ER) | payer MEDICARE, OTHER, SELFPAY ==
[2024-06-20 02:23] VITALS: BP 190/89; PULSE 55; RESP 20; TEMP 36.6; O2SAT 96; BMI 25.7
[2024-06-20 02:47] VITALS: BP 151/78; PULSE 54; RESP 20; O2SAT 95
[2024-06-20 03:03] VITALS: BP 140/74
--- NOTE | 2024-06-20 03:24 | ED_ITS ---
HPI - Recheck/Abnormal Lab/Rx General: Chief Complaint: Recheck/Abnormal Lab/Rx Stated Complaint: High BP Time Seen by Provider: 06/20/24 02:38 History of Present Illness: Patient presents with asymptomatic chronic high blood pressure. Upon arrival patient's blood pressure was 190/89 ear infections: Day for the right. Within the last week the patient's PCP increased his clonidine to 0.2 mg in the morning and 0.4 mg in the afternoon. Patient did keep a blood pressure log and his blood pressure is all over the place between 130 and 190 irregardless when he took his medicine. Related Data Home Medications Medication Instructions Recorded Confirmed Al hyd-Mg tr-alg ac-sod bicarb 80 1 tab PO DAILY 09/02/19 06/15/24 mg-14.2 mg chewable tablet (Gaviscon) chlorpheniramine maleate 4 mg 4 mg PO Q8H PRN Allergy Symptoms 11/14/22 06/15/24 tablet loperamide 2 mg capsule (Imodium 2 mg PO QID PRN Diarrhea 11/14/22 06/15/24 A-D) hydroxychloroquine 200 mg tablet mg PO 02/07/24 06/15/24 ketorolac 0.5 % eye drops drp ophthalmic (eye) QID 06/02/24 06/15/24 prednisolone acetate 1 % eye drp ophthalmic (eye) QID 06/02/24 06/15/24 drops,suspension Previous Rx's Medication Instructions Recorded blood-glucose meter (Blood Glucose #1 ea 02/04/23 Monitoring kit) blood-glucose meter (OneTouch #1 ea 02/26/23 Ultra2 Meter) epinephrine 0.3 mg/0.3 mL 0.3 mg (0.3 mL) IM Q4H PRN 05/20/23 injection, auto-injector (EpiPen anaphylaxis #2 ea 2-Troy) chlorthalidone 25 mg tablet 25 mg PO DAILY #90 tabs 10/31/23 pen needle, diabetic 32 gauge x #100 ea 11/28/2306/27 (Comfort EZ Pen [place]) blood sugar diagnostic (Oneuch #100 ea 12/12/23 Ultra Test strips) levothyroxine 25 mcg tablet See Rx Instructions .Route 04/07/24 .COMPLEX #90 tabs lancets 33 gauge (OneTouch Delica #100 ea 04/13/24 Plus Lancet) metformin 500 mg tablet See Rx Instructions .Route 04/16/24 .COMPLEX #450 tabs lovastatin 10 mg tablet See Rx Instructions .Route 04/23/24 .COMPLEX #90 tabs pantoprazole 20 mg tablet,delayed 20 mg PO DAILY #90 tabs 05/04/24 release insulin aspart U-100 100 unit/mL See Rx Instructions SUBCUT TID #15 05/07/24 (3 mL) subcutaneous pen (Novolog mL FlexPen U-100 Insulin aspart) insulin glargine 100 unit/mL (3 10 unit (0.1 mL) SUBCUT DAILY #15 05/08/24 mL) subcutaneous pen (Basaglar mL KwikPen U-100 Insulin) pen needle, diabetic 32 gauge x #100 ea 05/12/24 (BD Rani 2nd Gen Pen Needle) carvedilol 25 mg tablet See Rx Instructions .Route 05/20/24 .COMPLEX #180 tabs glipizide 5 mg tablet See Rx Instructions .Route 06/10/24 .COMPLEX #360 tabs clonidine HCl 0.2 mg tablet 0.2 mg PO .COMPLEX Hypertension 06/15/24 #90 tabs Allergies Allergy/AdvReac Type Severity Reaction Status Date / Time dexamethasone Allergy Severe ANGIOEDEMA Verified 06/15/24 13:49 amlodipine Allergy angioedema Verified 06/15/24 13:49 hydralazine Allergy vasiculitis Verified 06/15/24 13:49 lisinopril Allergy Unknown Verified 06/15/24 13:49 Review of Systems General: Reports: 10 or more systems reviewed and unremarkable except in HPI and below PFSH ED PFSH: Medical History NIKOLAI on CPAP Hypothyroidism Uncontrolled hypertension Diabetes mellitus GERD (gastroesophageal reflux disease) Hyperlipidemia Fatigue Surgical History S/P knee surgery Right S/P tonsillectomy and adenoidectomy 1951 Family History Sister Cancer Son Cancer Grandmother Myocardial infarction CAD (coronary artery disease) Diabetes Grandfather Myocardial infarction CAD (coronary artery disease) Father Myocardial infarction CAD (coronary artery disease) Mother Diabetes Other Hypertension Social History (Reviewed 06/20/24 @ 03:25 by ERIKA Salmon Smoking and tobacco/nicotine status: never used tobacco/nicotine Physical Exam Const: COMMON NORMALS: no acute distress, average body habitus, patient oriented x3, no limitations, healthy appearing, alert and well nourished Neck/C-Spine: COMMON NORMALS: no JVD Chest: COMMONS NORMALS: normal inspection of the chest and normal palpation of entire chest wall Resp: COMMON NORMALS: normal respiratory effort, No retractions, No use of accessory muscles and clear to auscultation bilaterally AUSCULTATION: clear to auscultation bilaterally Cardio: COMMON NORMALS: no JVD, regular rate, regular rhythm, S1 normal heart sound present, S2 normal heart sound present, No gallops present (Cardio), No clicks present (Cardio), No murmurs present (Cardio) and No rub (Cardio) RATE: regular rate RHYTHM: regular rhythm HEART SOUNDS: S1 normal heart sound present and S2 normal heart sound present GI: COMMON NORMALS: Normal to inspection, nondistended, normoactive bowel sounds present, Soft to palpation, non-tender, No hepatosplenomegaly present and no masses PALPATION: Yes Soft to palpation and Yes No hepatosplenomegaly present Neuro: COMMON NORMALS: patient oriented x3 SENSORIUM/ORIENTATION: Yes alert Course Vital Signs: Vital signs: Vital Signs Temperature 98 F 06/20/24 02:23 Pulse Rate 54 L 06/20/24 02:47 Respiratory Rate 20 H 06/20/24 02:47 Blood Pressure 140/74 06/20/24 03:03 Pulse Oximetry 95 06/20/24 02:47 MDM - Recheck/Abnormal Lab/Rx Medical Decision Making By time we was able to give patient any clonidine his blood pressure had decreased on its own to 140/74, had a long talk with patient and family about possibly increasing the clonidine to by 0.1 or 0.2 mg as needed in the morning or the afternoon depending upon his blood pressure. And following up with his family doctor. Medical Records I reviewed the patient's medical records. Lab Data I reviewed the patient's lab results. No radiology studies performed this visit Discharge Plan Discharge Patient Disposition: Home Clinical Impression: Uncontrolled hypertension Condition: Stable Prescriptions: No Action Gaviscon 80-14.2 mg tablet,chewable 1 tab PO DAILY chlorpheniramine maleate 4 mg tablet 4 mg PO Q8H PRN (Reason: Allergy Symptoms) Rx Instructions: do not exceed 2 doses per 24 hrs loperamide [Imodium A-D] 2 mg capsule 2 mg PO QID PRN (Reason: Diarrhea) (DME) pen needle, diabetic [Comfort EZ Pen [place]] 32 gauge x 1/4 needle See Rx Instructions .Route Qty: 100 0RF Rx Instructions: As directed pantoprazole 20 mg tablet,delayed release (DR/EC) 20 mg PO DAILY Qty: 90 1RF prednisolone acetate 1 % drops,suspension ophthalmic (eye) QID ketorolac 0.5 % drops ophthalmic (eye) QID clonidine HCl 0.2 mg tablet 0.2 mg PO .COMPLEX Qty: 90 1RF Rx Instructions: 0.2 mg orally in am and 0.4 mg in evening daily epinephrine [EpiPen 2-Troy] 0.3 mg/0.3 mL auto-injector 0.3 mg IM Q4H PRN (Reason: anaphylaxis) Qty: 2 0RF hydroxychloroquine 200 mg tablet PO insulin aspart U-100 [Novolog FlexPen U-100 Insulin] 100 unit/mL (3 mL) insulin pen See Rx Instructions SUBCUT TID Qty: 15 0RF Rx Instructions: sliding scale:140-199 2 units, 200-249 4 units 300-349 8 units 350+ 10units SQ (DME) blood-glucose meter [Blood Glucose Monitoring] Kit See Rx Instructions .ROUTE .MEDSUPPLY Qty: 1 0RF Rx Instructions: As directed ([facility] [place]) blood-glucose meter [OneTouch Ultra2 Meter] [facility] Rx Instructions .Route Qty: 1 0RF Rx Instructions: TEST DAILY chlorthalidone 25 mg tablet 25 mg PO DAILY Qty: 90 3RF (DME) OneTouch Ultra Test Strip See Rx Instructions .ROUTE .COMPLEX Qty: 100 2RF Dose Instruction: USE 1 STRIP TO CHECK GLUCOSE ONCE DAILY FOR DIABETES Rx Instructions: USE 1 STRIP TO CHECK GLUCOSE tid FOR DIABETES E11.9 levothyroxine 25 mcg tablet See Rx Instructions .ROUTE .COMPLEX Qty: 90 0RF Dose Instruction: Take 1 tablet by mouth once daily Rx Instructions: Take 1 tablet by mouth once daily (DME) lancets [OneTouch Delica Plus Lancet] 33 gauge misc See Rx Instructions .ROUTE .COMPLEX Qty: 100 0RF Dose Instruction: USE 1 TO CHECK GLUCOSE THREE TIMES DAILY FOR DIABETES Rx Instructions: USE 1 TO CHECK GLUCOSE THREE TIMES DAILY FOR DIABETES e11.9 metformin 500 mg tablet See Rx Instructions .ROUTE .COMPLEX Qty: 450 0RF Dose Instruction: TAKE 5 TABLETS BY MOUTH DAILY Rx Instructions: TAKE 5 TABLETS BY MOUTH DAILY lovastatin 10 mg tablet See Rx Instructions .ROUTE .COMPLEX Qty: 90 0RF Dose Instruction: Take 1 tablet by mouth once daily Rx Instructions: Take 1 tablet by mouth once daily insulin glargine [Basaglar KwikPen U-100 Insulin] 100 unit/mL (3 mL) insulin pen 10 unit SUBCUT DAILY Qty: 15 0RF (DME) pen needle, diabetic [BD Rani 2nd Gen Pen Needle] 32 gauge x /32 needle See Rx Instructions .ROUTE .COMPLEX Qty: 100 0RF Dose Instruction: USE DIRECTED Rx Instructions: USE DIRECTED carvedilol 25 mg tablet See Rx Instructions .ROUTE .COMPLEX Qty: 180 0RF Dose Instruction: Take 1 tablet by mouth twice daily Rx Instructions: Take 1 tablet by mouth twice daily glipizide 5 mg tablet See Rx Instructions .ROUTE .COMPLEX Qty: 360 0RF Dose Instruction: Take 2 tablets by mouth twice daily Rx Instructions: Take 2 tablets by mouth twice daily Discharge Orders: Discharge ED (Routine); Ordered 06/20/24 Ordered By: Stephan Hodgson Referrals: Areli Pruett FNP [Primary Care Provider] - 1 week Patient Instructions: Hypertension Activity Restrictions/Additional Instructions: Your blood pressure in ER improved on its own without any additional medicine, however you may need additional medicine if your blood pressure continues to be high. Therefore you can take an additional 0.1 mg clonidine if your blood pressure is high recheck in 1 hour if it is still high you may repeat it x 1. Please keep a log of this and a log of your blood pressures and take it to your next appointment with your family doctor as you may need overall medication adjustment. Coding Level of Care Code ED Film Spooler for Cristian Spears
[2024-06-20 03:32] VITALS: BP 140/74; PULSE 52; RESP 18; O2SAT 98
== END 2024-06-20 03:33 | disposition home or self-care (01) ==
PROVIDERS: Emergency Provider Emergency Medicine; PCP Nurse Practitioner Family
DX: I10 Essential (primary) hypertension (principal); Z79.4 Long term (current) use of insulin; Z79.84 Long term (current) use of oral hypoglycemic drugs; E11.9 Type 2 diabetes mellitus without complications; E78.5 Hyperlipidemia, unspecified
CPT/HCPCS: 99282

== ENCOUNTER 2024-06-22 07:37 | Outpatient (CLI) | payer MEDICARE, OTHER, SELFPAY ==
--- NOTE | 2024-06-22 07:30 | USCV_ITS ---
Rajeev Jeffers Age: 78 Gender: M : 1945 Exam Date: 06/22/2024 07:56 Ordering Phys: Areli Pruett Technologist: [facility] [place] [facility] [place]: [place] Aortic Velocity @ SMA (cm/s) 116 RIGHT KIDNEY LEFT KIDNEY Velocity (cm/s) Velocity (cm/s) Sys/Carranza Sys/Carranza Resistive Index Resistive Index 63.8 / 18.8 0.71 Proximal Renal Artery 56.8 / 12.1 0.79 62.5 / 15.8 0.75 Mid Renal Artery 22.0 / 5.7 0.74 34.3 / 9.8 0.72 Distal Renal Artery 24.0 / 5.0 0.79 48.0 / 11.6 0.76 Hilar 34.9 / 6.6 0.81 21.8 / 5.1 0.77 Upper Pole 18.7 / 5.1 0.72 50.2 / 11.3 0.78 Mid Pole 19.4 / 4.7 0.76 25.2 / 6.4 0.75 Lower Pole 26.2 / 5.5 0.79 0.54 Renal Aortic Ratio 0.49 Accleration Time (sec) 0.30 Hilar 0.29 0.27 Upper Pole 0.32 0.29 Mid Pole 0.35 0.25 Lower Pole 0.27 11.0 Kidney Length (cm) 11.2 CONCLUSIONS No sonographic evidence of hemodynamically significant renal artery stenosis bilaterally. No hydronephrosis in either kidney Bharat Olmos MD (Electronically Signed) Final Date: 22 June 2024 17:02 S
== END 2024-06-22 07:38 | disposition home or self-care (01) ==
LOC: RAD 07:40
PROVIDERS: PCP Nurse Practitioner Family; Visit Provider Nurse Practitioner Family
DX: I10 Essential (primary) hypertension (principal); R00.1 Bradycardia, unspecified
CPT/HCPCS: 93005; 93975

== ENCOUNTER → 2024-07-07 14:20 | Outpatient (BNVA) | payer MEDICARE, OTHER, SELFPAY | PROVIDERS: PCP Nurse Practitioner Family; Visit Provider Internal Medicine Cardiovascular Disease | DX: I10 Essential (primary) hypertension (principal); R00.1 Bradycardia, unspecified; E03.9 Hypothyroidism, unspecified; E78.5 Hyperlipidemia, unspecified; E11.9 Type 2 diabetes mellitus without complications; Z79.4 Long term (current) use of insulin | CPT/HCPCS: 99214 ==

== ENCOUNTER 2024-09-02 08:32 | Outpatient (CLI) | payer MEDICARE, OTHER, SELFPAY ==
--- NOTE | 2024-09-02 08:45 | USCV_ITS ---
Rajeev Jeffers Age: 78 Gender: M : 1945 Exam Date: 09/02/2024 08:49 Ordering Phys: Rebecca Hastings NP Technologist: Exam Location: [facility] [place] Indication: FOLLOW UP HTN Aortic Velocity @ SMA (cm/s) 61.8 RIGHT KIDNEY LEFT KIDNEY Velocity (cm/s) Velocity (cm/s) Sys/Carranza Sys/Carranza Resistive Index Resistive Index 97.0 / 24.0 0.74 Proximal Renal Artery 79.0 / 20.0 0.73 79.0 / 20.0 0.72 Mid Renal Artery 90.0 / 27.0 0.70 35.0 / 14.0 0.61 Distal Renal Artery 91.0 / 31.0 0.67 78.0 / 24.0 0.68 Hilar 83.0 / 20.0 0.75 23.0 / 6.0 0.72 Upper Pole 39.0 / 22.0 0.68 50.0 / 14.0 0.72 Mid Pole 78.0 / 22.0 0.71 67.0 / 22.0 0.67 Lower Pole 113.0 / 27.0 0.76 0.80 Renal Aortic Ratio 0.80 11.9 Kidney Length (cm) 11.8 CONCLUSIONS No sonographic evidence of hemodynamically significant renal artery stenosis bilaterally. No hydronephrosis Bharat Olmos MD (Electronically Signed) Final Date: 02 September 2024 09:54 S
== END 2024-09-02 08:33 | disposition home or self-care (01) ==
LOC: RAD 08:34
PROVIDERS: PCP Nurse Practitioner Family; Visit Provider Nurse Practitioner Family
DX: I10 Essential (primary) hypertension (principal)
CPT/HCPCS: 93975

== ENCOUNTER 2024-10-12 11:12 | Outpatient (CLI) | payer MEDICARE, OTHER, SELFPAY ==
--- NOTE | 2024-10-12 11:19 | XRR_ITS ---
PROCEDURE INFORMATION: Exam: XR Left Knee Exam date and time: 10/12/2024 11:24 AM Age: 79 years old Clinical indication: Left; Lt knee pain since having the RT knee replaced in 2021. Pain is centered directly over the patella. Pain is somewhere between sharp and aching; Additional info: M25.562 - pain in left knee TECHNIQUE: Imaging protocol: Radiologic exam of the left knee. Views: 3 views. COMPARISON: CR (LOW EXM, ) 03/31/2022 1:48 PM FINDINGS: Bones/joints: No fractures or dislocations. Moderate osteoarthrosis involving the medial compartment and to a lesser extent patellofemoral joint. Superior patellar enthesopathy. There may be a suprapatellar joint effusion. Soft tissues: Meniscal calcifications suggesting chondrocalcinosis. Vasculature: Prominent vascular calcifications. XR/XR knee LT 3V* [id number] IMPRESSION: No acute osseous findings. Degenerative changes.
== END 2024-10-12 11:13 | disposition home or self-care (01) ==
LOC: RAD 11:15
PROVIDERS: PCP Nurse Practitioner Family; Visit Provider Nurse Practitioner Family
DX: M17.12 Unilateral primary osteoarthritis, left knee (principal); I10 Essential (primary) hypertension; E11.9 Type 2 diabetes mellitus without complications; M76.892 Other specified enthesopathies of left lower limb, excluding foot; R93.6 Abnormal findings on diagnostic imaging of limbs; M79.89 Other specified soft tissue disorders; I70.90 Unspecified atherosclerosis
CPT/HCPCS: 73562; 80053; 80061; 83036; 84443

== ENCOUNTER → 2025-01-12 14:04 | Outpatient (BNVA) | payer MEDICARE, OTHER, SELFPAY | PROVIDERS: PCP Nurse Practitioner Family; Visit Provider Internal Medicine Cardiovascular Disease | DX: I10 Essential (primary) hypertension (principal); G47.33 Obstructive sleep apnea (adult) (pediatric) | CPT/HCPCS: 99214 ==

== ENCOUNTER → 2025-02-19 07:44 | Outpatient (BNVA) | payer MEDICARE, OTHER, SELFPAY | PROVIDERS: PCP Nurse Practitioner Family; Visit Provider Dermatology | DX: L80 Vitiligo (principal); L21.8 Other seborrheic dermatitis; L73.8 Other specified follicular disorders; L82.1 Other seborrheic keratosis; D17.0 Benign lipomatous neoplasm of skin and subcutaneous tissue of head, face and neck; D22.5 Melanocytic nevi of trunk; L57.0 Actinic keratosis | CPT/HCPCS: 17000; 99204 ==

== ENCOUNTER → 2025-02-26 08:30 | Outpatient (BNVA) | payer MEDICARE, OTHER, SELFPAY | PROVIDERS: PCP Nurse Practitioner Family; Visit Provider Internal Medicine Cardiovascular Disease | DX: I10 Essential (primary) hypertension (principal); E78.49 Other hyperlipidemia | CPT/HCPCS: 80048 ==

== ENCOUNTER → 2025-04-15 08:47 | Outpatient (BNVA) | payer MEDICARE, OTHER, SELFPAY | PROVIDERS: PCP Nurse Practitioner Family; Visit Provider Nurse Practitioner Family | DX: I10 Essential (primary) hypertension (principal); E09.65 Drug or chemical induced diabetes mellitus with hyperglycemia | CPT/HCPCS: 80061; 83036; 84443 ==

== ENCOUNTER → 2025-05-11 13:25 | Outpatient (BNVA) | payer MEDICARE, OTHER, SELFPAY | PROVIDERS: PCP Nurse Practitioner Family; Visit Provider Nurse Practitioner Family | DX: I10 Essential (primary) hypertension (principal) | CPT/HCPCS: 80048 ==

== ENCOUNTER → 2025-05-18 09:29 | Outpatient (BNVA) | payer MEDICARE, OTHER, SELFPAY | PROVIDERS: PCP Nurse Practitioner Family; Visit Provider Nurse Practitioner Family | DX: I10 Essential (primary) hypertension (principal) | CPT/HCPCS: 80048 ==

== ENCOUNTER → 2025-05-25 08:37 | Outpatient (BNVA) | payer MEDICARE, OTHER, SELFPAY | PROVIDERS: PCP Nurse Practitioner Family; Visit Provider Nurse Practitioner Family | DX: I10 Essential (primary) hypertension (principal); R53.82 Chronic fatigue, unspecified | CPT/HCPCS: 80048 ==